=== PATIENT | male | born 1990 | race Hispanic/Latino ===

== ENCOUNTER 2017-04-13 07:31 | Emergency (ER) | payer OTHER ==
[2017-04-13 07:35] VITALS: TEMP 97; O2SAT 98
[2017-04-13 07:36] VITALS: BMI 34.4
--- NOTE | 2017-04-13 08:15 | ED PDOC ---
HPI: Headache Time Seen by Provider: 04/13/17 07:38 Chief Complaint (Nursing): Headache Chief Complaint (Provider): headache History Per: Patient History/Exam Limitations: no limitations Onset/Duration Of Symptoms: Days (x 7), Intermittent Episodes Current Symptoms Are (Timing): Still Present Additional Complaint(s): Taqueria Barron is a 26 year old male, with no previous medical history, who presents to the ED for the evaluation of a headache which develops secondary to experiencing an orgasm half of the time for the past 7 days. Patient denies any fever, chills, nausea, dizziness, trouble speaking, visual changes or changes in gait. He reports headache resolves after taking advil. PMD: none provided Past Medical History Reviewed: Historical Data, Nursing Documentation, Vital Signs Vital Signs: Last Vital Signs Temp 97 F L 04/13/17 07:34 Pulse 96 H 04/13/17 07:34 Resp BP 142/74 04/13/17 07:34 Pulse Ox 98 04/13/17 07:34 - Medical History PMH: No Chronic Diseases - Surgical History Surgical History: No Surg Hx - Family History Family History: States: Diabetes - Social History Current smoker - smoking cessation education provided: Yes Alcohol: Social Drugs: Cannabis, Cocaine - Allergies Allergies/Adverse Reactions: Allergies Allergy/AdvReac Type Severity Reaction Status Date / Time cefaclor [From [facility]] Allergy RASH Verified 04/13/17 07:57 Review of Systems ROS Statement: Except As Marked, All Systems Reviewed And Found Negative Constitutional: Negative for: Fever, Chills Eyes: Negative for: Vision Change Gastrointestinal: Negative for: Nausea, Vomiting Neurological: Positive for: Headache. Negative for: Numbness, Incoordination, Change in Speech, Confusion, Seizures, Altered Mental Status, Dizziness Physical Exam - Reviewed Nursing Documentation Reviewed: Yes Vital Signs Reviewed: Yes - Physical Exam Appears: Positive for: Well, Non-toxic, No Acute Distress Head Exam: Positive for: ATRAUMATIC, NORMAL INSPECTION, NORMOCEPHALIC Skin: Positive for: Normal Color, Warm, Dry Eye Exam: Positive for: Normal appearance, EOMI, PERRL. Negative for: Nystagmus , Other (diplopia ) ENT: Positive for: Normal ENT Inspection Neck: Positive for: Normal, Painless ROM, Supple Cardiovascular/Chest: Positive for: Regular Rate, Rhythm Respiratory: Positive for: CNT, Normal Breath Sounds Gastrointestinal/Abdominal: Positive for: Normal Exam, Bowel Sounds, Soft. Negative for: Tenderness Back: Positive for: Normal Inspection. Negative for: L CVA Tenderness, R CVA Tenderness, Vertebral Tenderness Extremity: Positive for: Normal ROM. Negative for: Pedal Edema, Calf Tenderness Neurologic/Psych: Positive for: Alert, bullion weigher II-XII (intact ), Oriented (x 3), Other (romberg sign negative ). Negative for: Motor/Sensory Deficits - Laboratory Results Result Diagrams: 04/13/17 08:37 04/13/17 08:37 - ECG O2 Sat by Pulse Oximetry: 98 (RA) Pulse Ox Interpretation: Normal Medical Decision Making Medical Decision Making: Initial Impression: Headache Initial Plan: * erythrocyte sedimentation rate * urine drug screen * labs * CT head w/o contrast * reevaluation Scribe Attestation: Documented by Stephanie Harrell, acting as a scribe for Raven Neff MD. Provider Scribe Attestation: All medical record entries made by the Scribe were at my direction and personally dictated by me. I have reviewed the chart and agree that the record accurately reflects my personal performance of the history, physical exam, medical decision making, and the department course for this patient. I have also personally directed, reviewed, and agree with the discharge instructions and disposition. 11.00a - CT head and labs WNL. Will d/c patient with reassurance. Disposition - Clinical Impression Clinical Impression: Acute headache - Patient ED Disposition Is Patient to be Admitted: No Doctor Will See Patient In The: Office - Disposition Referrals: Aguila Bailey MD [Medical Doctor] - Zeferino Mccarty MD [Medical Doctor] - [facility] [Outside] Disposition: Routine/Home Disposition Time: 11:15 Condition: STABLE Instructions: Acute Headache (ED) Forms: [facility] (Macedonian), [facility] ED School/Work Excuse - POA Present On Arrival: None
[2017-04-13 08:51] LABS: BASO % 0.7 % (0.0-2.0); EOS # 0.2 K/uL (0.0-0.7); EOS % 2.4 % (0.0-4.0); HEMATOCRIT 47.5 % (35.0-51.0); LYMPH % 27.4 % (20.0-40.0); MEAN CELL VOLUME 92.7 fl (80.0-94.0); MEAN CORPUSCULAR HGB CONC 34.5 g/dL (33.0-37.0); MEAN PLATELET VOLUME 9.5 fl (7.2-11.7); MONO # 0.6 K/uL (0.0-0.8); MONO % 7.8 % (0.0-10.0); NEUT # 4.4 K/uL (1.8-7.0); NEUT % 61.7 % (50.0-75.0); RED CELL DISTRIBUTION WIDTH 12.7 % (11.5-14.5); WHITE BLOOD COUNT 7.1 K/uL (4.8-10.8)
[2017-04-13 09:06] LABS: BLOOD UREA NITROGEN 19 mg/dl (9-20); CALCIUM 9.3 mg/dL (8.4-10.2); CARBON DIOXIDE 27 mmol/L (22-30); CHLORIDE 104 mmol/L (98-107); GFR AFRICAN-AMERICAN > 60; GLUCOSE,RANDOM 89 mg/dL (75-110); SODIUM 141 mmol/l (132-148)
--- NOTE | 2017-04-13 10:01 | CT ---
PROCEDURE: CT HEAD WITHOUT CONTRAST. HISTORY: ejaculation HARRISON's x 1 week (5 out 9 times) COMPARISON: None available. TECHNIQUE: Axial computed tomography images were obtained through the head/brain without intravenous contrast. Radiation dose: Total exam DLP = 940 mGy-cm. This CT exam was performed using one or more of the following dose reduction techniques: Automated exposure control, adjustment of the mA and/or kV according to patient size, and/or use of iterative reconstruction technique. FINDINGS: HEMORRHAGE: No intracranial hemorrhage. BRAIN: No mass effect or edema. No atrophy or chronic microvascular ischemic changes. VENTRICLES: Unremarkable. No hydrocephalus. CALVARIUM: There a smaller of increased density in the right parietal-occipital region suspicious free versus either scarring or limited scalp hematoma. PARANASAL SINUSES: Unremarkable as visualized. No significant inflammatory changes. MASTOID AIR CELLS: Unremarkable as visualized. No inflammatory changes. OTHER FINDINGS: None. IMPRESSION: Unremarkable unenhanced head CT. Incidental right parieto-occipital scalp hematoma or scarring potentially. Underlying calvarium is unremarkable appearing.
[2017-04-13 11:43] VITALS: BP 130/80; PULSE 89; RESP 18
== END 2017-04-13 11:43 | disposition home or self-care (01) ==
LOC: H.ER 07:31
DX: R51 Headache (principal)